=== PATIENT | male | born 1995 | race Caucasian/White ===

== ENCOUNTER 2022-10-11 07:48 | Outpatient (CLI) | payer OTHER ==
--- NOTE | 2022-10-11 15:09 | MRI Report ---
PROCEDURE: KNEE WO - RT INDICATIONS: PAIN IN RIGHT KNEE TECHNIQUE: Noncontrast sagittal PD fast spin echo and T2 fast spin echo with fat saturation, sagittal 3-D gradie nt sequence with fat saturation; coronal T1 spin echo and PD fast spin echo with fat saturation, and axial PD fast spin echo with fat saturation through the knee. COMPARISON: None. FINDINGS: Image quality: Excellent. Menisci: The medial and lateral menisci demonstrate normal morphology and internal signal. The meni scal root ligaments appear intact. Cruciate ligaments: T2 hyperintense signal within mildly thickened mid to distal anterior cruciate li gament is seen. No ACL rupture. PCL is intact. Medial structures: The medial collateral ligament appears intact. The posterior oblique ligament, s emimembranosus tendon insertions, and oblique popliteal ligament, and meniscocapsular junction appear intact. Visualized portions of the pes anserinus tendons appear normal. No abnormal bursal fluid. Lateral structures: The lateral collateral ligament, long and short heads of the biceps femoris tend on appear intact. The popliteus tendon appears normal; the popliteofibular ligament appears intact. Iliotibial band appears normal. Anterior structures: The quadriceps and patellar tendons appear intact. Patellar alignment is davis l. No femoral trochlear dysplasia or ventral trochlear prominence. No edema in the infrapatellar fa t pad. Bones and cartilage: No bone marrow contusions or fractures. The cartilage of the medial and latera l femorotibial compartments appears normal in thickness. 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 Joint space: There is physiologic knee joint fluid. No Christie's cyst. Normal appearing synovial pli are incidentally noted. IMPRESSION: 1. Finding may represent mild sprain/intrasubstance partial thickness tear involving anterior cruciat e ligament. No ACL rupture. PCL is intact. 2. No evidence of focal meniscal tear. 3. No marrow edema. No fracture or dislocation. 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 Reviewed by: Sachin Wilson MD on 10/11/2022 3:08 PM PST Approved by: Sachin Wilson MD on 10/11/2022 3:08 PM PST Station ID: [id number]
== END 2022-10-11 07:49 | disposition home or self-care (01) ==
LOC: DI 07:48
PROVIDERS: ATTEND Orthopaedic Surgery
DX: M22.41 Chondromalacia patellae, right knee (principal)